=== PATIENT | female | born 2000 | race Caucasian/White ===

== ENCOUNTER 2019-03-12 01:28 | Inpatient (IN) ==
[2019-03-12] MEDS ORDERED: fentaNYL Inj 100 MCG/2 ML VIAL ONE (01:29)
[2019-03-12] MEDS ORDERED: Naloxone Inj 0.01 MG in Sodium Chloride 0.9% vial 1 ML IVP PRN (01:31)
[2019-03-12] MEDS ORDERED: ePHEDrine Inj 50 MG/ML AMP IVP PRN (01:31)
[2019-03-12] MEDS ORDERED: TERBUTALINE SULFATE 1 MG/1 ML SDV SUBCUT PRN (01:31)
[2019-03-12] MEDS ORDERED: Phenylephrine Inj 50 MCG in Sodium Chloride 0.9% vial 0.5 ML IVP PRN (01:31)
[2019-03-12] MEDS ORDERED: Nalbuphine Inj 20 MG/ML Ampule IVP PRN ×2 (01:31→09:58)
[2019-03-12] MEDS ORDERED: BUTORPHANOL TARTRATE 2 MG/1 ML VIAL IVP PRN (01:31)
[2019-03-12] MEDS ORDERED: MISOPROSTOL 200 MCG TABLET RECTAL PRN (01:31)
[2019-03-12] MEDS ORDERED: CefOXitin Inj 2 GM in Sodium Chloride 0.9% 100 ML IV PRN (01:31)
[2019-03-12] MEDS ORDERED: LIDOCAINE HCL 2 % 10 ML JELLY URO-JECT TOPICAL PRN ×2 (01:31→09:58)
[2019-03-12] MEDS ORDERED: CITRIC ACID/SODIUM CITRATE 30 ML CUP PO PRN (01:31)
[2019-03-12] MEDS ORDERED: ONDANSETRON 4 MG/2 ML VIAL IVP PRN ×2 (01:31→09:58)
[2019-03-12] MEDS ORDERED: diphenhydrAMINE 50 MG/1 ML VIAL IVP PRN ×2 (01:31→09:58)
[2019-03-12] MEDS ORDERED: OXYTOCIN 10 UNIT/1 ML IM PRN (01:31)
[2019-03-12] MEDS ORDERED: METHYLERGONOVINE MALEATE 0.2 MG/1 ML VIAL IM PRN (01:31)
[2019-03-12] MEDS ORDERED: LIDOCAINE W/ SODIUM BICARB 0.5 ML SYR SUBD PRN (01:31)
[2019-03-12] MEDS ORDERED: Carboprost Inj 250 MCG/ML AMP IM PRN (01:31)
[2019-03-12] MEDS ORDERED: Metoclopramide Inj 10 MG/2 ML VIAL IV PRN (01:31)
[2019-03-12] MEDS ORDERED: Lidocaine 1% 10 MG/ML - 20 ML VIAL SUBCUT PRN (01:31)
[2019-03-12] MEDS ORDERED: NALOXONE 0.4 MG/1 ML VIAL IVP PRN (01:31)
[2019-03-12] MEDS ORDERED: FAMOTIDINE 20 MG/2 ML VIAL IVP PRN ×2 (01:31)
[2019-03-12 01:44] LABS: Hematocrit [HCT] 35.9 % (37.0-47.0); Hemoglobin [HGB] 12.4 g/dL (12.0-16.0); MEAN CORPUSCULAR HEMOGLOBIN 30.3 PG (27-31); MEAN CORPUSCULAR HGB CONC 34.5 g/dL (33-37); MEAN CORPUSCULAR VOLUME 87.8 FL (81-99); MEAN PLATELET VOLUME 11.4 FL (7.4-12.2); RED BLOOD COUNT 4.09 10^6/uL (4.20-5.40)
[2019-03-12] MEDS ORDERED: Oxytocin 20 Units + LR 20 UNIT/1,000 ML BAG IV SCH ×2 (01:45→09:58)
[2019-03-12] MEDS: Lactated Ringers-OB Dept 1,000 ML PRIMARY IV SCH ×3 (01:48→13:55)
[2019-03-12] MEDS: fentaNYL Inj 100 MCG/2 ML VIAL IV PRN ×3 (01:49→03:38)
[2019-03-12] MEDS ORDERED: Lidocaine/Epi Inj 1.5% 5 ML AMPUL EPIDURAL ONE (02:48)
[2019-03-12] MEDS ORDERED: Sodium Chloride 0.9% vial 0 ML ONE (03:49)
[2019-03-12] MEDS ORDERED: Fent/Bupiv 2mcg/0.0625% Epid 250 ML ONE (03:57)
--- NOTE | 2019-03-12 04:27 | CRNA.PROCE ---
Central Neuraxis Block Placemt - - Safety Measures: Time Out Taken, Site Verified - - Type of Block: Epidural Reason for Block: Analgesia Moniters Used During Block: SPO2, NIBP Positioning: Sitting Draped: Yes Skin Infiltration - Enter Amount Used in Comment Field: 1% Xylocaine (mL): Yes Introducer User: 18 Gauge Lanxtead Spinal Needle Used: 18 Hustead 80 mm Local Anesthetic - Enter Amount Used in Comment Field: 1.5 % Xylocaine with Epinephrine 1:200,000 (mL): Yes (5) Number of Centimeters Catheter Threaded: 4 Bioclusive Dressing Applied: Yes Anesthesia Time - Other Weight: 65.771 kg Height: 5 ft 3 in Body Mass Index (BMI): 25.7
[2019-03-12] MEDS ORDERED: fentaNYL 2 MCG/BUPIVACAINE 0.0625%/NS 0.9% 250 ML BAG EPIDURAL SCH (04:30)
[2019-03-12] MEDS: CALCIUM CARBONATE 500 MG (TUMS) CHEWABLE TABLET PO PRN ×2 (04:59→07:14)
[2019-03-12] MEDS ORDERED: diphenhydrAMINE 25 MG CAPSULE PO PRN (09:58)
[2019-03-12] MEDS ORDERED: Lidocaine 1% 10 MG/ML - 20 ML VIAL INTRADERM PRN (09:58)
[2019-03-12] MEDS ORDERED: DIPH,PERTUSS,TET(ADACEL) VAC/PF 0.5 ML (Tdap) IM ONE (09:58)
[2019-03-12] MEDS ORDERED: ACETAMINOPHEN 325 MG TABLET PO PRN (09:58)
[2019-03-12] MEDS ORDERED: BENZOCAINE/MENTHOL SPRAY 56 GM BOTTLE TOPICAL PRN (09:58)
[2019-03-12] MEDS ORDERED: Ondansetron ODT Tab 4 MG TAB PO PRN (09:58)
[2019-03-12] MEDS ORDERED: LANOLIN HPA 40 GM TUBE TOPICAL PRN (09:58)
[2019-03-12] MEDS ORDERED: GLYCERIN/WITCH HAZEL 1 BOX TOPICAL PRN (09:58)
[2019-03-12] MEDS ORDERED: CALCIUM CARBONATE 500 MG (TUMS) CHEWABLE TABLET PO PRN (09:58)
--- NOTE | 2019-03-12 09:59 | OB.DEL.SUM ---
Delivery Note Delivery Summary: Pt is a 19 yo G1 now P1 at 37 4/7 weeks by early /s who has been followed closely for IUGR concerns. Her AZUCENA yesterday was 9.4. The night prior to admission, she was taking a bath and felt a pop. Painful contractions started soon after. Since she lives in [place], she was met by the ambulance in [facility]. On presentation to labor and delivery here, she was 4/100/-1. An epidural was placed for analgesia. She labored on her own and was c/c/+1 at 0700. She labored down for about an hour and than began to push. Her epidural was very dense, so her expulsive effort was minimal. Baby began to have decelerations to the 70s and 80s with each push. She did push the baby down to +3 station and the FHT's were in the 60s. A small right mediolateral episiotomy was made and the Kiwi vacuum was applied and pumped up to the green zone. With excellent pushing effort, the baby's head and shoulders delivered easily. The Kiwi was removed. There was a tight nuchal cord x 1. Baby was dried and stimulated and the nose and mouth were bulb suctioned. Baby was crying and had good tone, so was placed on mom's chest. Cord clamping was delayed x 60 seconds. The cord was doubly clamped by myself and cut by the father of the baby. Time of delivery was 0858. The placenta delivered spontaneously and intact with a 3 vessel cord at 0908. 20 mU of pitocin were infused. The vagina and perineum were examined and only the second degree vaginal and perineal laceration was noted. It was repaired in the normal fashion with 3-0 vicryl rapide suture. Excellent hemostasis was noted. Apgars were 8 at 1 minute and 9 at 5 minutes. Baby weighed 6#0.5oz. EBL 400cc. Both mom and baby tolerated delivery well and are in stable condition at the current time.
[2019-03-12] MEDS: IBUPROFEN 800 MG TABLET PO PRN ×2 (12:21→22:09)
[2019-03-13] MEDS: HYDROcodone-APAP 5 MG -325 MG TABLET PO PRN ×3 (01:08→18:49)
[2019-03-13 04:34] LABS: Hematocrit [HCT] 32.4 % (37.0-47.0); Hemoglobin [HGB] 10.7 g/dL (12.0-16.0); MEAN CORPUSCULAR HEMOGLOBIN 30.5 PG (27-31); MEAN CORPUSCULAR VOLUME 92.3 FL (81-99); MEAN PLATELET VOLUME 11.3 FL (7.4-12.2); RED BLOOD COUNT 3.51 10^6/uL (4.20-5.40)
[2019-03-13] MEDS: DOCUSATE 100 MG CAPSULE PO SCH ×2 (09:19→21:25)
[2019-03-13] MEDS: IBUPROFEN 800 MG TABLET PO PRN ×2 (09:19→17:31)
[2019-03-13] MEDS: Prenatal Multivitamin Tab 1 TAB TAB PO SCH (09:19)
--- NOTE | 2019-03-14 | OB.PROGRES ---
Subjective Post Day: 1 Pain Management: PO Villarreal Catheter: No Flatus: Yes Lochia Color: Rubra/Red Scant < 10 ml Diet: Regular Feeding Method: Formula Feeding Ambulating: Yes Concerns / Additional Information: Pt got good rest overnoc as the baby was able to stay in the nursery with the nurses. Reports today that her back and perineum are both sore. Bottle feeding for now as she feels that she doesn't have much colostrum. Father of the baby is anxious to go home. Objective - General General Appearance: POSITIVE: No Acute Distress, Cooperative - Cardiovacular Cardiovascular Exam: POSITIVE: RRR, No Murmur Edema: +1 Pedal Edema Extremities: Negative Navjot's - Bilaterally - Respiratory Respiratory Exam: POSITIVE: Clear to Auscultation - Bilaterally, Breathing Non Labored - Abdomen Bowel Sounds: Present Assesstment / Plan (1) Spontaneous vaginal delivery Current Visit: Yes Status: Acute Assessment / Plan: Overall, doing well. -encouraged sitz baths to help perineum heal after right mediolateral episiotomy -taking norco fairly regularly to help with back and perineal pain. -rh positive. -rubella immune. -bottle feeding for now--may go back to nursing once her milk has come in, but slept all night and hasn't been pumping regularly. This was encouraged today. -discussed for possible need for baby to stay in the hospital another night due to hypoglycemia--parents both state understanding. -will sign out to Dr. Atkins, the pt's PCP, in the morning.
[2019-03-14] MEDS: HYDROcodone-APAP 5 MG -325 MG TABLET PO PRN ×2 (00:38→09:52)
[2019-03-14 00:39] VITALS: TEMP 98.1
[2019-03-14] MEDS: IBUPROFEN 800 MG TABLET PO PRN (02:11)
--- NOTE | 2019-03-14 07:51 | OB.PROGRES ---
Subjective Post Day: 2 Pain Management: PO Villarreal Catheter: No Flatus: Yes Lochia Color: Rubra/Red Scant < 10 ml Diet: Regular Feeding Method: / Bottle Ambulating: Yes Concerns / Additional Information: Pumping. bottle feeding. Home today per patient. doing well Objective - General General Appearance: POSITIVE: No Acute Distress, Cooperative - Cardiovacular Cardiovascular Exam: POSITIVE: RRR Edema: No Pedal Edema Extremities: Negative Navjot's - Bilaterally - Respiratory Respiratory Exam: POSITIVE: Clear to Auscultation - Bilaterally - Abdomen Bowel Sounds: Present Other Abdominal Exam Details: soft. non-tender - Fundus/Lochia/Perineum Uterus Consistency: Firm Uterus Position: POSITIVE: At Umbilicus Assesstment / Plan Assessment / Plan: day # 2. doing well. platlets [id number] yesterday am pain well controlled Plan check cbc today to check platlets and h/h d/c today sitz baths bid pelvic rest 6 weeks Ferrous sulfate 325 mg 1 bu mouth daily Colace 1 capsule once or twice daily for constipation Ibuprofen 800 mg by mouth three times per day with food as needed Hydrocodone 5/325 1 tablet by moouth every 8 hours as needed for pain 1 multivitamin per day pelvic rest for 6 weeks follow up with me in 6 weeks depression sxs d/w patient in detail usual precautions
--- NOTE | 2019-03-14 08:54 | CRNA.PROGR ---
Anesthesia Note - Progress Notes Anesthesia Progress Note: Sitting up in bed talking with spouse. Has been ambulatory ad [place]. Epidural was dc'd by OB RN, see note. Discussed anesthetic course and she has no questions or concerns at this time. Vital Signs (24 hrs) 03/13/19 09:00 03/13/19 13:00 03/13/19 21:26 Temperature 97.7 F 98.2 F 98.4 F Pulse Rate [Pulse Oximeter] 71 68 84 Respiratory Rate 16 16 12 Blood Pressure [Right Arm] 111/66 103/60 112/61 Pulse Ox 97 98 96 03/14/19 00:39 Temperature 98.1 F Pulse Rate [Pulse Oximeter] 69 Respiratory Rate 16 Blood Pressure [Right Arm] 100/53 Pulse Ox 98
[2019-03-14] MEDS: Prenatal Multivitamin Tab 1 TAB TAB PO SCH (09:52)
[2019-03-14] MEDS: DOCUSATE 100 MG CAPSULE PO SCH (09:52)
[2019-03-14 10:57] LABS: BASOPHILS # (AUTO) 0.04 10*3/UL; BASOPHILS % (AUTO) 0.4 % (0-1); EOSINOPHILS # (AUTO) 0.28 10*3/UL; EOSINOPHILS % (AUTO) 3.1 % (0-8); Hematocrit [HCT] 34.6 % (37.0-47.0); Hemoglobin [HGB] 11.6 g/dL (12.0-16.0); LYMPHOCYTES # (AUTO) 1.94 10*3/uL; MEAN CORPUSCULAR HEMOGLOBIN 30.5 PG (27-31); MEAN CORPUSCULAR HGB CONC 33.5 g/dL (33-37); MEAN CORPUSCULAR VOLUME 91.1 FL (81-99); MEAN PLATELET VOLUME 9.7 FL (7.4-12.2); MONOCYTES # (AUTO) 0.62 10*3/UL (0.3-0.8); MONOCYTES % (AUTO) 6.9 % (5-15); NEUTROPHILS # (AUTO) 5.98 10*3/UL; NEUTROPHILS % (AUTO) 67.1 % (50-80)
[2019-03-14 11:01] LABS: PLATELET MORPHOLOGY COMMENT NORMAL MORPHOLOGY (NORM); RBC MORPHOLOGY COMMENT NORMAL MORPHOLOGY (NORM); WBC MORPHOLOGY COMMENT NORMAL MORPHOLOGY (NORM)
[2019-03-14 11:18] VITALS: BP 115/68; RESP 18; O2SAT 99
== END 2019-03-14 11:45 | disposition home or self-care (01) | DRG 807 ==
LOC: OBOP 01:28 → OBIP 01:31
PROVIDERS: ADMIT Family Medicine; ATTEND Family Medicine